=== PATIENT | female | born 1960 | race Asian ===

== ENCOUNTER 2018-12-13 13:19 | Day surgery (SDC) | payer OTHER ==
[2018-12-13] MEDS ORDERED: PROPOFOL 20 ML (18:19)
== END 2018-12-13 20:50 | disposition home or self-care (01) ==
LOC: GIL 13:19
DX: Z12.11 Encounter for screening for malignant neoplasm of colon (principal); K62.89 Other specified diseases of anus and rectum
CPT/HCPCS: 45378